=== PATIENT | female | born 1955 | race Caucasian/White ===

== ENCOUNTER 2025-03-16 08:27 | Emergency (ER) | payer OTHER, MEDICARE ==
[~2025-03-16] VITALS: Ht 177.8 cm; Wt 72.0 kg
[2025-03-16 08:36] VITALS: O2SAT 100
[2025-03-16] MEDS: KETOROLAC 30MG/ML VIAL IM ONE (10:19)
[2025-03-16] MEDS: ACETAMINOPHEN 500MG TABLET PO ONE (10:20)
[2025-03-16] MEDS ORDERED: IBUP-2029 MT (10:39)
[2025-03-16] MEDS ORDERED: LIDO-53 TP (10:39)
[2025-03-16] MEDS ORDERED: METH-653 MT (10:39)
[2025-03-16 11:01] VITALS: BP 155/80; PULSE 65; RESP 16; TEMP 37; O2SAT 100
== END 2025-03-16 11:04 | disposition home or self-care (01) ==
LOC: ER 08:27
DX: M25.512 Pain in left shoulder (principal); E78.00 Pure hypercholesterolemia, unspecified; I10 Essential (primary) hypertension; V43.52XA Car driver injured in collision with other type car in traffic accident, initial encounter; Y93.89 Activity, other specified; Y92.410 Unspecified street and highway as the place of occurrence of the external cause; Y99.8 Other external cause status
CPT/HCPCS: 99283; 71045; 96372; J1885